=== PATIENT | female | born 1990 | race Caucasian/White ===

== ENCOUNTER 2019-05-23 08:58 | Emergency (ER) | payer SELFPAY ==
[~2019-05-23] VITALS: Ht 170.2 cm; Wt 95.0 kg
[2019-05-23] MEDS ORDERED: ONDANSETRON HCL 4MG/2ML INJ IV STA (09:21)
[2019-05-23] MEDS ORDERED: MORPHINE SULFATE 4 MG/ML CPJ (NOT FOR IM USE) IV STA (09:21)
[2019-05-23 09:54] LABS: BASOPHILS % 0.9 % (0.0-2.0); EOSINOPHILS % 2.2 % (0.0-5.0); HEMATOCRIT. 45.3 % (36.0-48.0); HEMOGLOBIN. 15.3 g/dL (12.0-16.0); LYMPHOCYTES % 31.5 % (20.0-50.0); MEAN CORPUSCULAR HEMOGLOBIN 29.8 pg (28.0-32.0); MEAN PLATELET VOLUME 8.1 fl (7.4-10.4); MONOCYTES % 5.9 % (2.0-8.0); NEUTROPHILS % 59.5 % (40.0-76.0); PLATELET 294 x1000/uL (130-400); RED BLOOD CELL COUNT 5.15 mill/uL (4.2-5.4); RED CELL DISTRIBUTION WIDTH 13.8 % (11.6-14.6)
[2019-05-23 09:57] LABS: CHLORIDE 106 mEq/L (98-107)
[2019-05-23 09:58] LABS: INR 0.9; PROTHROMBIN TIME 9.6 sec (9.6-11.0)
[2019-05-23 10:05] LABS: HCG SCREEN NEGATIVE
[2019-05-23 11:30] VITALS: BP 123/82
== END 2019-05-23 15:40 | disposition home or self-care (01) ==
LOC: ER 08:58
DX: S93.491A Sprain of other ligament of right ankle, initial encounter (principal); R10.12 Left upper quadrant pain; W01.0XXA Fall on same level from slipping, tripping and stumbling without subsequent striking against object, initial encounter; Y93.89 Activity, other specified; Y92.018 Other place in single-family (private) house as the place of occurrence of the external cause
CPT/HCPCS: 36415; 73610; 74176; 80053; 83690; 84703; 85025; 85610; 96374; 96375; 99284; J2270; J2405; Z7610